=== PATIENT | male | born 1980 | race Native Hawaiian/Other Pacific Islander ===

== ENCOUNTER 2021-11-04 16:04 | Observation (INO) | payer OTHER, SELFPAY ==
[2021-11-04] VITALS (10 sets, daily range): BP systolic 107–154; BP diastolic 63–90; PULSE 71–104; RESP 13–20; TEMP 36.2–37.5; O2SAT 96–99; BMI 25.8; BMI 26.8
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
[2021-11-04] MEDS: HYDROMORPHONE 0.5 MG INJ IV (16:19)
[2021-11-04 16:30] LABS: Add Manual Diff / Slide Review NO; Basophils Absolute Auto 100 /uL (0-100); Basophils Percent Auto 0.9 % (0-2); Eosinophils Absolute Auto 100 /uL (0-450); Eosinophils Percent Auto 0.9 % (2-4); Hemoglobin 12.7 g/dL (13.5-17.5); Lymphocytes Absolute Auto 2300 /uL (1100-4500); Lymphocytes Percent Auto 27.5 % (25-40); Mean Corpuscular HGB Conc 32.5 % (30-36); Mean Corpuscular Hemoglobin 21.8 PG (26-34); Mean Corpuscular Volume 66.9 fL (80-100); Monocytes Absolute Auto 600 /uL (0-900); Monocytes Percent Auto 6.9 % (3-14); Neutrophils Absolute Auto 5400 /uL (1500-7000); Neutrophils Percent Auto 63.8 % (50-75); Platelet Count 255 X10^3/uL (150-400); Red Blood Cell Count 5.83 X10^6/uL (4.5-5.9); Red Cell Distribution Width 14.6 % (11.6-14.8); White Blood Cell Count 8.5 X10^3/uL (4.5-11.0)
[2021-11-04 16:32] LABS: Alanine Aminotransferase 34 IU/L (<50); Albumin 4.5 g/dL (3.5-5.0); Albumin Globulin Ratio 1.4 (1.0-2.8); Alkaline Phosphatase 58 U/L (38-126); Aspartate Aminotransferase 44 IU/L (17-59); BUN Creatinine Ratio 13.8 (6-22); Bilirubin Total 0.3 mg/dL (0.2-1.3); Blood Urea Nitrogen 18 mg/dL (9-20); Calcium 8.7 mg/dL (8.4-10.2); Carbon Dioxide 27 mmol/L (22-32); Chloride 104 mmol/L (98-107); Estimated Glomerular Filt Rate > 60 mL/min (>60); Globulin 3.2 g/dL (1.7-4.1); Glucose 104 mg/dL (70-100); HEMOLYSIS < 15 (0-50); Potassium 3.8 mmol/L (3.4-5.1); Sodium 138 mmol/L (137-145); Total Protein 7.7 g/dL (6.3-8.2)
[2021-11-04 16:54] LABS: Hypochromasia 2+; Microcytosis 2+
[2021-11-04] MEDS: HYDROMORPHONE 1 MG INJ IV ×2 (17:00→18:55)
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
--- NOTE | 2021-11-04 18:15 | DI.CT.S_ITS ---
PROCEDURE: CT ABDOMEN PELVIS W CON INDICATIONS: trauma TECHNIQUE: After the administration of oral and IV contrast, axial sections were acquired from the lung bases to the pubic symphysis. Coronal and sagittal reformats were performed. For radiation dose reduction, the following was used: automated exposure control, adjustment of mA and/or kV according to patient size. COMPARISON: [facility], CT, CT CHEST W CON, 11/04/2021, 16:22. FINDINGS: Image quality: Beam hardening artifact from the patient's arm positioning. Lung bases: Small left pleural effusion with atelectasis. 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 Heart: No significant findings. ABDOMEN: Liver: Unremarkable. Gallbladder: Unremarkable. Biliary ducts: Unremarkable. Pancreas: Unremarkable. Spleen: Unremarkable. Adrenal Glands: Unremarkable. Kidneys and Ureters: Unremarkable. Stomach and Bowel: No evidence of intestinal obstruction or inflammatory change. Normal appearance of the appendix. Peritoneum: No abnormal intraperitoneal fluid. No free air. Ventral Wall: No hernia. Abdominal Nodes: No retroperitoneal or mesenteric adenopathy by size criteria. Vessels: Aorta and inferior vena cava are normal in size. PELVIS: Pelvic Organs: Unremarkable. Bladder: Unremarkable. Pelvic Nodes: No enlarged lymph nodes. Miscellaneous: No inguinal hernias are seen. Bones: Redemonstrated left rib fractures, previously described. IMPRESSION: 1. No acute intra-abdominal/pelvic abnormality. Dictated by: Abraham Mahan M.D. on 11/04/2021 at 18:43 Approved by: Abraham Mahan M.D. on 11/04/2021 at 18:49
[2021-11-04 20:17] LABS: COVID19 -Nasal RAPID Negative (Negative)
[2021-11-04] MEDS: SODIUM CHLORIDE 0.9% FLUSH 10 ML IV (21:54)
--- NOTE | 2021-11-04 22:02 | PC.ADMIT ---
Patient admitted to room 215 from ER. Is alert and oriented. Breath sounds diminished but CTA with RA sat of 98%. Instructed on use of I.S. and is able to get to 1500. HRR. Denies nausea. BT present and abdomen is soft. Denies any urinary problems. Is able to move in bed but slow related to left rib pain. Gait not assessed. Bilateral calf SCD's applied. Fall risk score is low. States pain is 5/10 and tolerable so declines offer of pain medication at this time. [id number] Admission Note: The patient,Melchor Aguayo,41 y/o, was given written information regarding hospital policies, unit procedures and contact persons. Patient's smoking status: Never smoker. Vital Signs - 8 hr 11/04/21 16:05 11/04/21 16:20 11/04/21 16:30 Temperature 98.7 F 97.2 F L Pulse Rate 87 71 87 Respiratory Rate 18 18 17 Blood Pressure 124/84 130/90 141/82 H Pulse Oximetry 98 97 99 11/04/21 16:40 11/04/21 16:50 11/04/21 17:00 Temperature Pulse Rate 100 H 98 H 100 H Respiratory Rate 20 17 19 Blood Pressure 151/84 H 150/84 H 146/79 H Pulse Oximetry 98 99 97 11/04/21 17:30 11/04/21 18:00 11/04/21 19:15 Temperature 97.3 F L 99.5 F Pulse Rate 101 H 100 H 104 H Respiratory Rate 14 13 20 Blood Pressure 154/86 H 150/84 H 137/86 Pulse Oximetry 97 99 98
--- NOTE | 2021-11-05 | DI.RAD.S_ITS ---
PROCEDURE: XR CHEST 2V INDICATIONS: rib fracture TECHNIQUE: 2 views of the chest were acquired. COMPARISON: Merged With [facility], CT, CT CHEST W CON, 11/04/2021, 16:22. Merged With [facility], CR, XR CHEST 1V, 11/04/2021, 16:15. Merged With [facility], CT, CT ABDOMEN PELVIS W CON, 11/04/2021, 18:21. FINDINGS: Surgical changes and devices: None. Lungs and pleura: Left basilar infiltrate and atelectasis. No pleural effusions or pneumothorax. Mediastinum: Mediastinal contours are normal. Heart size is normal. Bones and chest wall: Posterior left fractures seen on the comparison chest CT are not well seen on radiographs. No suspicious bony abnormalities. Soft tissues appear unremarkable. IMPRESSION: 1. Left basilar infiltrate and atelectasis, likely secondary to pulmonary contusion. 2. Posterior left rib fractures seen on the comparison CT are not well seen on radiographs. 3. No pneumothorax. Dictated by: Violeta Baumann M.D. on 11/05/2021 at 9:33 Approved by: Violeta Baumann M.D. on 11/05/2021 at 9:37
[2021-11-05 03:00] VITALS: BP 118/72; PULSE 86; RESP 20; TEMP 37.2; O2SAT 97
[2021-11-05] MEDS: HYDROMORPHONE 1 MG INJ IV ×3 (03:12→12:22)
[2021-11-05] MEDS: SODIUM CHLORIDE 0.9% FLUSH 10 ML IV ×3 (03:13→19:47)
[2021-11-05 06:02] LABS: Add Manual Diff / Slide Review NO; Basophils Absolute Auto 100 /uL (0-100); Basophils Percent Auto 0.8 % (0-2); Eosinophils Absolute Auto 100 /uL (0-450); Eosinophils Percent Auto 1.3 % (2-4); Hematocrit 36.9 % (41-53); Hemoglobin 11.7 g/dL (13.5-17.5); Lymphocytes Absolute Auto 1500 /uL (1100-4500); Lymphocytes Percent Auto 21.5 % (25-40); Mean Corpuscular HGB Conc 31.8 % (30-36); Mean Corpuscular Hemoglobin 21.3 PG (26-34); Mean Corpuscular Volume 67.1 fL (80-100); Monocytes Absolute Auto 700 /uL (0-900); Monocytes Percent Auto 10.5 % (3-14); Neutrophils Absolute Auto 4600 /uL (1500-7000); Neutrophils Percent Auto 65.9 % (50-75); Platelet Count 237 X10^3/uL (150-400); Red Cell Distribution Width 14.9 % (11.6-14.8)
[2021-11-05 06:25] LABS: Alanine Aminotransferase 31 IU/L (<50); Albumin 3.8 g/dL (3.5-5.0); Albumin Globulin Ratio 1.3 (1.0-2.8); Alkaline Phosphatase 61 U/L (38-126); Aspartate Aminotransferase 48 IU/L (17-59); Bilirubin Total 0.4 mg/dL (0.2-1.3); Blood Urea Nitrogen 19 mg/dL (9-20); Calcium 8.5 mg/dL (8.4-10.2); Carbon Dioxide 29 mmol/L (22-32); Chloride 104 mmol/L (98-107); Estimated Glomerular Filt Rate > 60 mL/min (>60); Globulin 2.9 g/dL (1.7-4.1); Glucose 102 mg/dL (70-100); HEMOLYSIS < 15 (0-50); Potassium 4.1 mmol/L (3.4-5.1); Sodium 139 mmol/L (137-145); Total Protein 6.7 g/dL (6.3-8.2)
[2021-11-05 06:42] LABS: Hypochromasia 2+
[2021-11-05 06:43] LABS: Microcytosis 2+
[2021-11-05 07:00] VITALS: BP 136/93; PULSE 73; RESP 17; TEMP 37.2; O2SAT 98
--- NOTE | 2021-11-05 07:41 | PC.NURSE ---
End of shift note. Care of patient from [id number]. Good pain control with IV dilaudid. Using IS indept. up to 1500ml.
[2021-11-05 11:00] VITALS: BP 122/80; PULSE 81; RESP 17; TEMP 37.6; O2SAT 99
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
[2021-11-05 15:00] VITALS: BP 138/80; PULSE 79; RESP 18; TEMP 37.4; O2SAT 100
[2021-11-05] MEDS: HYDROCODONE/ACET 10/325 TABLET 1 TAB PO (17:23)
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
[2021-11-05 19:48] VITALS: BP 131/85; PULSE 89; RESP 14; TEMP 37.2; O2SAT 96
[2021-11-06 01:05] VITALS: BP 138/85; PULSE 71; RESP 16; TEMP 36.2; O2SAT 98
[2021-11-06] MEDS: HYDROCODONE/ACET 10/325 TABLET 1 TAB PO ×3 (01:08→16:08)
[2021-11-06 05:59] VITALS: BP 137/92; PULSE 70; RESP 14; TEMP 36.7; O2SAT 100
[2021-11-06] MEDS: SODIUM CHLORIDE 0.9% FLUSH 10 ML IV (08:13)
[2021-11-06] MEDS: HYDROMORPHONE 1 MG INJ IV ×2 (08:13→12:44)
[2021-11-06 09:00] VITALS: BP 132/79; PULSE 103; RESP 14; TEMP 36.9; O2SAT 99
[2021-11-06 13:00] VITALS: BP 130/80; PULSE 95; RESP 15; TEMP 36.7; O2SAT 100
--- NOTE | 2021-11-06 13:07 | PC.NURSE ---
Pt is AxOx4, needs 1 per assistance with ADL, VSS except pt c/o on L side ribs and recieved PRN Dilaudid 1mg IV twice. It was effective. pt has good appetite and voiding well. Pt ate his lunch and ready to d/c. Pt's s/o is in the room. D/c instructions were given.
== END 2021-11-06 16:45 | disposition home or self-care (01) ==
LOC: ED 18:15 → AC 18:18
PROVIDERS: Admitting Provider Surgery; Emergency Provider Emergency Medicine; Referring Provider Emergency Medicine; Visit Provider Surgery
DX: S22.42XA Multiple fractures of ribs, left side, initial encounter for closed fracture (principal); V28.4XXA Motorcycle driver injured in noncollision transport accident in traffic accident, initial encounter; Y92.414 Local residential or business street as the place of occurrence of the external cause; I10 Essential (primary) hypertension
CPT/HCPCS: 36415; 70450; 71045; 71046; 71260; 72125; 74177; 80053; 85025; 87635; 96374; 96376; 99225; 99285; 99291; C9803; G0378; J1170; Q9967

== ENCOUNTER 2024-05-24 13:45 | Outpatient (RCR) | payer OTHER, SELFPAY ==
[2021-11-04 19:50] VITALS: BMI 26.8
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
== END 2024-05-25 09:11 | disposition home or self-care (01) ==
LOC: PHYS 13:45
PROVIDERS: Family Provider Family Medicine; PCP Family Medicine; Referring Provider Family Medicine; Visit Provider Family Medicine
DX: M25.562 Pain in left knee (principal); R53.1 Weakness
CPT/HCPCS: 97110; 97112; 97140; 97161; 97530; 97535